=== PATIENT | female | born 1985 | race Caucasian/White ===

== ENCOUNTER 2020-08-27 05:42 | Day surgery (SDC) | payer OTHER ==
[~2020-08-27] VITALS: Ht 162.6 cm; Wt 142.9 kg
[2020-08-27 06:17] LABS: HEMATOCRIT 40.2 % (36.0-48.0); HEMOGLOBIN 13.2 g/dL (12-16); MCH 28.5 pg (26.0-34.0); MCHC 32.8 g/dL (31.0-37.0); MCV 86.8 fL (80.0-100.0); MEAN PLATELET VOLUME 9.6 fL (7.4-10.4); RBC 4.63 10x6/uL (4.00-5.40); RDW 12.6 % (11.5-14.5)
[2020-08-27 06:43] LABS: HCG SERUM NEGATIVE (NEGATIVE)
[2020-08-27 07:24] VITALS: BP 111/84; Ht 162.6 cm; Wt 142.9 kg
--- NOTE | 2020-08-27 10:16 | NUR ---
DISCHARGED VIA W/C, ACCOMPANIED BY THIS NURSE, TO POV WITH FRIEND DRIVING. ALL BELONGINGS AND DC PACKET WITH PT.
--- NOTE | 2020-08-27 10:54 | HP ---
PATIENT: LAURA KIRK MEDICAL RECORD: [id number] ACCOUNT: [id number] LOCATION:[facility] : 81 ADMISSION DATE: 08/27/20 PCP: LEANNE ZAMORA APRN HISTORY AND PHYSICAL EXAMINATION HISTORY: Ms. Kirk is 34. She has been having obstructive symptoms that are progressive and recurrent pharyngitis. She is being admitted for tonsillectomy and adenoidectomy. PAST MEDICAL HISTORY: Includes seasonal allergies. PAST SURGICAL HISTORY: Includes times 2. ALLERGIES: No known drug allergies. PHYSICAL EXAMINATION: GENERAL: She is healthy appearing, developmentally normal. FACE: Normal, symmetric. No lesions. EYES: Conjunctivae normal. EARS: Canals and TMs normal. NOSE: No mass, polyps, or drainage. ORAL CAVITY AND OROPHARYNX: Massive 4+ tonsils. The left one is much larger crossing the midline. NECK: No masses. No adenopathy. CHEST: Clear. CARDIOVASCULAR: Regular rate and rhythm. No murmur. EXTREMITIES: Normal. IMPRESSION: Obstructive adenotonsillar hypertrophy and chronic pharyngitis. PLAN: Tonsillectomy and adenoidectomy. TRANSINT:[id number] Voice Confirmation ID: [id number] DOCUMENT ID: [id number] RACQUEL FREEMAN MD at 1054 CC: [id number] DICTATION DATE: 08/25/20908 SUPERVISOR ROLLING ROOM: 08/25/20 1023 [facility] 08/27/20 [id number] [place] [address]
--- NOTE | 2020-08-30 09:28 | OP ---
PATIENT NAME: LAURA KIRK MEDICAL RECORD: [id number] :81 [facility]: SURGEON: RACQUEL FREEMAN MD DATE OF OPERATION: 08/27/2020 PREOPERATIVE DIAGNOSES: Obstructive adenotonsillar hypertrophy and chronic pharyngitis. POSTOPERATIVE DIAGNOSES: Obstructive adenotonsillar hypertrophy and chronic pharyngitis. PROCEDURE: Tonsillectomy and adenoidectomy. SURGEON: Racquel Freeman MD ANESTHESIA: General orotracheal. BLOOD LOSS: 5 mL. SPECIMENS: Right and left tonsil. COMPLICATIONS: None. DISPOSITION: Recovery, stable. PROCEDURE IN DETAIL: She was brought to the operating room and placed in supine position, sedated and intubated by anesthesia. The eyes were taped. Head was turned 90 degrees. Head drape was applied and she was positioned for tonsillectomy. Using a headlight, a Myla-Per mouth gag was carefully inserted and elevated on a towel on the chest. The palate was examined and palpated, it was normal. A red rubber catheter was placed in the right side of the nose and the pharynx was grasped with tonsil clamp to retract the soft palate. Using a mirror, the nasopharynx was examined. Some adenoid tissue at the choana was cauterized with the suction cautery on a setting of 35. She had some inferior turbinate hypertrophy. Choanae and eustachian orifices were otherwise normal. A red rubber catheter was let down and removed. The right tonsil was grasped at the superior pole with a straight Allis clamp. Spatula tip cautery on a setting of 9 was used to dissect out the tonsil along its capsule, preserving the anterior and posterior tonsillar pillar. The left tonsil was removed in same fashion, then both sides of the nose were irrigated with saline. The pharynx was suctioned. The tonsillar fossa was agitated. Suction cautery on a setting of 18 was used to control minimal oozing. With the field completely clean and dry, the Myla-Per mouth gag was let down and removed. She was awakened, extubated, and transported to recovery in good condition. No complications. TRANSINT:[id number] Voice Confirmation ID: [id number] DOCUMENT ID: [id number] OPERATIVE REPORT [id number] REAGANLAURA MACK, RACQUEL AYERS at 0928 CC: [id number] DICTATION DATE: 08/27/20 1051 NURSE SUPERVISOR: 08/27/20 1623 [facility] 08/27/20 [id number] [place] [address]
== END 2020-08-27 10:16 | disposition home or self-care (01) ==
LOC: D.OPS 05:42
PROVIDERS: Anesthesiology; ATTEND Otolaryngology
DX: J35.3 Hypertrophy of tonsils with hypertrophy of adenoids (principal); J31.2 Chronic pharyngitis; J30.2 Other seasonal allergic rhinitis